=== PATIENT | male | born 1990 | race Caucasian/White ===

== ENCOUNTER 2017-07-22 09:53 | Emergency (ER) | payer SELFPAY ==
[~2017-07-22] VITALS: Ht 177.8 cm; Wt 75.8 kg
[2017-07-22] MEDS ORDERED: PROMETHAZINE/COD. 10MG/6.25MG/5 ML ORAL SOL PO ONE (10:30)
[2017-07-22 10:53] LABS: BASOPHILS # (AUTO) 0.04 x10^3/uL (0-0.1); BASOPHILS % (AUTO) 0 % (0-1); EOSINOPHILS # (AUTO) 0.13 x10^3/uL (0-0.4); EOSINOPHILS % (AUTO) 1 % (1-7); LYMPHOCYTES # (AUTO) 1.65 x10^3/uL (1-3.4); LYMPHOCYTES % (AUTO) 14 % (22-44); MD NO; MEAN CORPUSCULAR HEMOGLOBIN 30.2 pg (27.5-34.5); MEAN CORPUSCULAR HGB CONC 33.7 g/dL (33.2-36.2); MEAN CORPUSCULAR VOLUME 89.8 fL (81-97); MONOCYTES # (AUTO) 1.22 x10^3/uL (0.2-0.8); MONOCYTES % (AUTO) 10 % (2-9); NEUTROPHILS # (AUTO) 9.15 x10^3/uL (1.8-6.8); NEUTROPHILS % (AUTO) 75 % (42-75); PLATELET COUNT 278 x10^3/uL (130-400); RED CELL DISTRIBUTION WIDTH 13.7 % (9.4-14.8)
[2017-07-22 11:02] LABS: ALBUMIN 3.5 g/dL (3.4-5.0); ANION GAP 8 mmol/L (5-15); CALCIUM 8.8 mg/dL (8.5-10.1); CHLORIDE 108 mmol/L (98-107)
[2017-07-22 11:03] LABS: CREATININE 0.99 mg/dL (0.7-1.3)
[2017-07-22] MEDS ORDERED: LEVOFLOXACIN 500 MG TABLET ONE (11:19)
[2017-07-22 11:35] VITALS: BP 114/54
== END 2017-07-22 11:37 | disposition home or self-care (01) ==
LOC: ED 11:31
DX: J02.8 Acute pharyngitis due to other specified organisms (principal); B30.9 Viral conjunctivitis, unspecified; B97.89 Other viral agents as the cause of diseases classified elsewhere
CPT/HCPCS: 36415; 80048; 82040; 85025; 99284